=== PATIENT | male | born 1960 | race Caucasian/White ===

== ENCOUNTER → 2019-02-22 | Outpatient (CLI) | payer SELFPAY ==
--- NOTE | 2019-02-22 15:43 | PCVCIMAG ---
APPROVED REPORT Study performed: 02/22/2019 14:08:49 Exam: Stress Echocardiogram Indication: Elevated CA Score, FAm hx CAD Patient Location: Echo lab Stress Nurse: Elaine Funes RN Status: routine Ht: 5 ft 11 in HR: 69 bpm BP: 122/82 mmHg Rhythm: NSR Medical History Medical History: Hyperlipidemia, Diabetes Procedure The patient underwent an Exercise Stress Test using the Scot Protocol. Blood pressure, heart rate, and EKG were monitored. An Echocardiogram was performed by commercial kitchen service technician in four stages in quad fashion. At peak stress, four selected images were obtained and placed side by side with resting images for comparison. Stress Test Details Stress Test: Exercise stress testing was performed using a Scot protocol. HR Resting HR: 69 bpmMax Heart Rate (APMHR): 161 bpm Max HR Achieved: 171 bpmTarget HR (85% APMHR): 136 bpm % of APMHR: 106 Recovery HR: 89 bpm HR response to stress: Normal HR response to stress BP Resting BP: 122/82 mmHg Max BP: 160/80 mmHg Recovery BP: 146/80 mmHg BP response to stress: Normal blood pressure response to stress. ECG Resting ECG: Sinus Rhythm Stress ECG: Sinus Rhythm Arrhythmia: Frequent PVC's Recovery ECG: Sinus Rhythm Clinical Reason for Termination: Maximal effort Exercise duration: 9 min 00 sec Highest Stage Achieved: Stage 3: 3.4 mph at 14% grade. Exercise capacity: 10.40 METs Overall Exercise Capacity for Age: Good Stress ECG Conclusion ECG: Non-ischemic Clinical: Non-ischemic Pre-Stress Echo The resting Echocardiogram showed normal left ventricular contractility with an estimated Ejection Fraction of about >55%. Normal wall motion in all segments on baseline images. Post-Stress Echo The stress Echocardiogram showed normal left ventricular contractility with an estimated Ejection Fraction of about 60-65%. Normal augmentation of wall motion in all segments on post stress images. Clinical No clinical or ECG evidence for ischemia. Conclusion Clinical Response: Non-ischemic Exercise Capacity: Average Stress ECG Response: Non-ischemic Stress Echo Images: Non-ischemic The left ventricle is normal in size and wall thickness in both the rest and stress images. Other Information Study Quality: Adequate <Conclusion> The left ventricle is normal in size and wall thickness in both the rest and stress images.
== END | disposition home or self-care (01) ==
LOC: PCVCIMAG 13:43
PROVIDERS: ATTEND Internal Medicine Cardiovascular Disease
DX: R93.1 Abnormal findings on diagnostic imaging of heart and coronary circulation (principal); Z82.49 Family history of ischemic heart disease and other diseases of the circulatory system
CPT/HCPCS: 93325; 93351